=== PATIENT | female | born 1985 | race Caucasian/White ===

== ENCOUNTER 2022-09-22 10:59 | Day surgery (SDC) | payer BC ==
[2022-09-19 15:15] LABS: BASOPHILS % (AUTO) 0.6 % (0-1); EOSINOPHILS % (AUTO) 0.4 % (0-6); LYMPHOCYTES # (AUTO) 2.7 X10'3 (1.1-4.8); LYMPHOCYTES % (AUTO) 35.9 % (21-51); MEAN CORPUSCULAR HEMOGLOBIN 31.5 PG (27.0-31.0); MEAN CORPUSCULAR VOLUME 92.5 FL (78-98); MEAN PLATELET VOLUME 7.3 FL (7.4-10.4); MONOCYTES # (AUTO) 0.6 X10'3 (0-0.9); MONOCYTES % (AUTO) 7.3 % (2-12); NEUTROPHILS # (AUTO) 4.3 X10'3 (1.8-7.7); NEUTROPHILS % (AUTO) 55.8 % (42-75); PRE OP HEMATOCRIT 44.9 % (35.0-45.0); PRE OP HEMOGLOBIN 15.3 g/dL (12.0-16.0); PRE OP PLATELET COUNT 327 X10'3 (140-440); RED BLOOD COUNT 4.86 X10'6 (4.20-5.60)
[2022-09-19 15:16] LABS: CLARITY,URINE CLEAR (Clear); COLOR,URINE YELLOW (Yellow); GLUCOSE, URINE NEGATIVE (Neg); KETONES,URINE NEGATIVE (Neg); LEUKOCYTE ESTERASE ,URINE NEGATIVE (Neg); NITRITES, URINE NEGATIVE (Neg); OCCULT BLOOD,URINE TRACE-INTACT (Neg); PH,URINE 6.5 (4.8-8.0); PROTEIN,URINE NEGATIVE (Neg); UROBILINOGEN,URINE 0.2 E.U/dL (0.2-1.0)
[2022-09-19 15:21] LABS: BACTERIA,URINE NONE SEEN /HPF (Neg); RBC,URINE 0-2 /HPF (0-2); UA COLLECTION TYPE CLN CATCH MIDSTREAM; WBC,URINE NONE SEEN /HPF (0-4)
[2022-09-19 15:22] LABS: MUCUS STRANDS NONE SEEN /LPF (Neg); SQUAMOUS EPITHELIAL CELL,UR FEW /LPF (FEW)
[2022-09-19 15:30] LABS: ALBUMIN 4.4 G/DL (3.4-5.0); ALBUMIN/GLOBULIN RATIO 1.2 (1.1-1.5); ALKALINE PHOSPHATASE 65 IU/L (46-116); BLOOD UREA NITROGEN 13 MG/DL (7-18); CALCIUM 9.4 MG/DL (8.5-10.1); CHLORIDE 100 MMOL/L (99-107); CREATININE 0.65 MG/DL (0.40-0.90); PRE OP ALT 16 U/L (30-65); PRE OP ANION GAP 2 (8-16); PRE OP AST 16 U/L (10-37); PRE OP BILIRUB, TOTAL 0.3 MG/DL (0.0-1.0); PRE OP GLUCOSE 96 MG/DL (70-104); PRE OP POTASSIUM 3.7 MMOL/L (3.4-5.1); PRE OP SODIUM 134 MMOL/L (135-145); TOTAL CARBON DIOXIDE 31.7 MMOL/L (24-32); TOTAL PROTEIN 8.1 G/DL (6.4-8.2); eGFR > 90 ML/MIN
[2022-09-19 15:36] LABS: HCG SERUM QL NEGATIVE
[2022-09-22] VITALS (7 sets, daily range): BP systolic 119–149; BP diastolic 65–88
[~2022-09-22] VITALS: Ht 180.3 cm; Wt 74.0 kg
[~2022-09-22 10:59] MED LIST: LISI1TAB51 PO; MAGN400C PO; NORE1TAB99 PO; PHEN30CA21 PO; ceFOXitin 2GM-NS 100mL ADDvant 100 ML IV ONE; famotidine 20mg tablet PO ONE; ringers solution, lacted 1,000 ML IV SCH
[2022-09-22] MEDS ORDERED: BUPIVAcaine 0.5% inj/PF 30 ml vial IJ ONE (13:00)
[2022-09-22] MEDS ORDERED: BUPIVAcaine 0.5% inj/PF 30 ML ONE (13:31)
[2022-09-22] MEDS ORDERED: aprepitant 40mg capsule PO ONE (13:37)
[2022-09-22] MEDS ORDERED: sevoflurane 250ml liquid IH ONE (13:42)
[2022-09-22] MEDS ORDERED: neostigmine methylsulfate 1 MG/ML 10ml vial ONE (13:42)
[2022-09-22] MEDS ORDERED: fentaNYL/PF 50MCG/1 ML 2ML syringe ONE (13:51)
[2022-09-22] MEDS ORDERED: ringers solution, lacted 1,000 ML IV SCH (14:10)
[2022-09-22] MEDS ORDERED: hydrALAZINE 20mg/ml inj. IV PRN (14:10)
[2022-09-22] MEDS ORDERED: morphine 4 MG/ML inj SYRINge IV PRN (14:10)
[2022-09-22] MEDS ORDERED: ondansetron/PF 4mg/2ml inj IV PRN (14:10)
[2022-09-22] MEDS ORDERED: labetalol 20mg/4ml (5mg/ml) syringe IV PRN (14:10)
[2022-09-22] MEDS ORDERED: acetaminophen 1,000mg/100ml IV 100 ML IV PRN (14:10)
[2022-09-22] MEDS ORDERED: proCHLORperazine 10 MG/2 ml inj IV PRN (14:10)
[2022-09-22] MEDS ORDERED: ketorolac trometh. 30mg/ml inj. IV ONE (14:10)
[2022-09-22] MEDS ORDERED: meperidine/PF 25mg/ml syringe IV PRN ×3 (14:10)
[2022-09-22] MEDS ORDERED: morphine 2 MG/ML inj. syringe IV PRN (14:10)
[2022-09-22] MEDS ORDERED: propofol inj 20 ML IV ONE (14:19)
[2022-09-22] MEDS ORDERED: midazolam 1 mg/ML 2ml injection ONE (14:19)
[2022-09-22] MEDS ORDERED: LIDOcaine 2% (20mg/ml) 5ml vial ONE (14:20)
[2022-09-22] MEDS ORDERED: dexamethasone sod phosphate 4mg/ml inj. ONE (14:20)
[2022-09-22] MEDS ORDERED: ondansetron/PF 4mg/2ml inj ONE (14:20)
[2022-09-22] MEDS ORDERED: fentaNYL/PF 50MCG/1 ML 2ML syringe IV PRN ×2 (14:20)
[2022-09-22] MEDS ORDERED: rocuronium 10mg/ml inj IV ONE (14:20)
[2022-09-22] MEDS ORDERED: fentaNYL /PF 50mcg/ml 5ml ampule ONE (14:21)
--- NOTE | 2022-09-22 14:59 | NUR ---
Received from OR via BED IN STABLE CONDITION, accompanied by Anesthesiologist and PREVENTATIVE MAINTENANCE TECHNICIAN report given by PREVENTATIVE MAINTENANCE TECHNICIAN AND Anesthesiolgist. Addendum: 09/22/22 at 1544 by Ciarra Jackson RN Amended: Links added.
[2022-09-22] MEDS ORDERED: atropine 0.1mg/ml 10ml syringe ONE (15:00)
--- NOTE | 2022-09-22 16:09 | NUR ---
PATIENT DISCHARGED FROM PACU IN STABLE CONDITION AFTER WRITTEN AND VERBAL DISCHARGE INSTRUCTIONS GIVEN. PATIENT LEFT FACILITY VIA WHEELCHAIR WITH RN. Addendum: 09/22/22 at 1615 by Ciarra Jackson RN Amended: Links added.
== END 2022-09-22 16:09 | disposition home or self-care (01) ==
LOC: PAS 10:59
PROVIDERS: ATTEND Obstetrics & Gynecology Obstetrics
DX: Z30.2 Encounter for sterilization (principal); N93.8 Other specified abnormal uterine and vaginal bleeding; N83.8 Other noninflammatory disorders of ovary, fallopian tube and broad ligament; I10 Essential (primary) hypertension; Z98.890 Other specified postprocedural states; Z88.5 Allergy status to narcotic agent; Z79.899 Other long term (current) drug therapy; Z83.3 Family history of diabetes mellitus; Z82.49 Family history of ischemic heart disease and other diseases of the circulatory system
CPT/HCPCS: 36415; 58563; 58670; 71046; 80053; 81001; 82948; 84703; 85025; 86885; 86900; 86901; J0131; J0461; J0694; J1100; J1885; J2250; J2405; J2704; J3010; J3490; J7030; J7120; J8501; S0020; Z7506; Z7508; Z7512; A4355; A4618; A4649; A6258; A7000; J2710